=== PATIENT | female | born 1955 | race Caucasian/White ===

== ENCOUNTER → 2019-11-16 | Outpatient (CLI) | payer OTHER | END | disposition home or self-care (01) | LOC: RAD 09:49 | PROVIDERS: ATTEND Family Medicine Sports Medicine | DX: R22.31 Localized swelling, mass and lump, right upper limb (principal); R22.32 Localized swelling, mass and lump, left upper limb; M47.812 Spondylosis without myelopathy or radiculopathy, cervical region; M19.071 Primary osteoarthritis, right ankle and foot | CPT/HCPCS: 78306; A9503 ==

== ENCOUNTER 2021-04-17 15:26 | Emergency (ER) | payer OTHER ==
[~2021-04-17] VITALS: Ht 162.6 cm; Wt 72.3 kg
--- NOTE | 2021-04-17 16:23 | NUR ---
assembler final: Pt to room via WC from lobby at this time.
--- NOTE | 2021-04-17 16:36 | NUR ---
ERMD AT BEDSIDE FOR EVALUATION.
--- NOTE | 2021-04-17 16:37 | NUR ---
PATIENT WHEELED BACK FROM TRIAGE WITH CHIEF C/O "BLOOD CLOTS IN MY STOOL." PER PATIENT SHE HAS DIVERTICULITIS AND WAS TOLD BY PCP IF SHE HAS BLOOD IN HER STOOL TO COME TO ED. PATIENT SEES [facility] FOR ISSUES. PATIENT REPORTS LEFT LOWER ABD PAIN WELL. NADN, CONNECTED TO MONITOR, VSS, CALL LIGHT WITHIN REACH. SIGNIFICANT OTHER AT BEDSIDE.
[2021-04-17] MEDS ORDERED: SODIUM CHLORIDE 0.9% 1,000 ML IV ONE (17:30)
[2021-04-17] MEDS ORDERED: SODIUM CHLORIDE FLUSH 10ML SYR IVF ONE (17:30)
[2021-04-17 17:46] LABS: BASOPHILS % (AUTO) 1 % (0-1); EOSINOPHILS % (AUTO) 1 % (1-7); LYMPHOCYTES % (AUTO) 23 % (22-44); MEAN CORPUSCULAR HEMOGLOBIN 31.3 pg (27.0-34.8); MEAN CORPUSCULAR HGB CONC 34.1 g/dL (32.4-35.8); MEAN PLATELET VOLUME 8.8 fL (7.4-10.4); MONOCYTES % (AUTO) 8 % (2-9); NEUTROPHILS % (AUTO) 68 % (42-75); PLATELET COUNT 317 x10^3/uL (130-400); RED BLOOD COUNT 4.61 x10^6/uL (3.82-5.3); RED CELL DISTRIBUTION WIDTH 13.5 % (9.6-15.2)
[2021-04-17 17:58] LABS: ALBUMIN 4.1 g/dL (3.4-5.0); ANION GAP 7 mmol/L (5-15); CALCIUM 8.9 mg/dL (8.5-10.1); CHLORIDE 101 mmol/L (98-107)
[2021-04-17 18:01] LABS: CREATININE 0.63 mg/dL (0.55-1.02)
[2021-04-17 18:02] LABS: ALANINE AMINOTRANSFERASE 34 U/L (12-78); ALKALINE PHOSPHATASE 84 U/L (45-117); BILIRUBIN,TOTAL 1.1 mg/dL (0.2-1.0); TOTAL PROTEIN 8.4 g/dL (6.4-8.2)
--- NOTE | 2021-04-17 18:24 | NUR ---
PATIENT TO IMAGING.
[2021-04-17] MEDS ORDERED: ONDANSETRON 2MG/ML, 2ML IVPush ONE (18:30)
[2021-04-17] MEDS ORDERED: MORPHINE SULFATE 4 MG/ML, 1ML IVPush ONE (18:30)
[2021-04-17] MEDS ORDERED: OMNIPAQUE 350 MG/ML, 100ML BOTTLE ONE (18:38)
[2021-04-17] MEDS ORDERED: MORPHINE SULFATE 4 MG/ML, 1ML ONE (18:38)
[2021-04-17] MEDS ORDERED: ONDANSETRON 2MG/ML, 2ML ONE (18:38)
--- NOTE | 2021-04-17 18:44 | NUR ---
PATIENT BACK FROM IMAGING, MEDICATED PER eMAR, CONNECTED TO MONITOR, VSS, AT BEDSIDE, CALL LIGHT WITHIN REACH. WAITING FOR CT RESULTS.
--- NOTE | 2021-04-17 19:24 | NUR ---
PT LAYING IN BED, A/OX4, AT BEDSIDE, VSS, THIS RN TO ADMINSTER PO ABX AND THEN MD WILL DISCHARGE PT, PT NAD AT THIS TIME
[2021-04-17] MEDS ORDERED: CEFDINIR 300 MG CAPSULE PO/NG ONE (19:30)
[2021-04-17] MEDS ORDERED: metroNIDAZOLE 500 MG TABLET PO ONE (19:30)
[2021-04-17] MEDS ORDERED: metroNIDAZOLE 500 MG TABLET ONE (19:32)
[2021-04-17] MEDS ORDERED: CEFDINIR 300 MG CAPSULE ONE (19:32)
[2021-04-17 20:13] VITALS: BP 145/86
== END 2021-04-17 20:15 | disposition home or self-care (01) ==
LOC: ED 19:45
DX: K57.33 Diverticulitis of large intestine without perforation or abscess with bleeding (principal); Z90.710 Acquired absence of both cervix and uterus
CPT/HCPCS: 36415; 74177; 80053; 85025; 96361; 96374; 96375; 99285; J2270; J2405; J7030; Q9967